=== PATIENT | female | born 1995 | race Caucasian/White ===

== ENCOUNTER 2017-02-25 20:59 | Emergency (ER) | payer SELFPAY ==
--- NOTE | 2017-02-25 22:17 | RADIOLOGY REPORT (SQ) ---
EXAM DESCRIPTION: MANDIBLE 4 VIEWS OR MORE COMPLETED DATE/TIME: 02/25/2017 10:07 pm REASON FOR STUDY: possible dislocation COMPARISON: None. NUMBER OF VIEWS: Four view. TECHNIQUE: Images of the mandible acquired. AP, Froylan's, angled right, angled left mandible images. LIMITATIONS: None. FINDINGS: MANDIBLE: No acute fracture. No disruption of the right or left temporomandibular joints. ORBITS: No fracture. No foreign body. SINUSES: No mucosal thickening. No air fluid levels. FACIAL BONES: No fracture. OTHER: No other significant finding. IMPRESSION: NO ACUTE FRACTURE OR MALALIGNMENT. TECHNICAL DOCUMENTATION: JOB ID: [id number] All Rights Reserved
[2017-02-26] MEDS ORDERED: PROPOFOL INJ 200 MG/20 ML VIAL IV ONE (00:10)
[2017-02-26] MEDS ORDERED: NORMAL SALINE 1000 ML 1,000 ML IV ONE (00:11)
--- NOTE | 2017-02-26 00:16 | ER Document Report ---
ED General - General Chief Complaint: Jaw Pain Stated Complaint: JAW PAIN Time Seen by Provider: 02/26/17 00:02 Notes: Patient is a 19-year-old female presents with complaint of a jaw dislocation. She on and her daughter remained open. She says he said this happened a few times before but has eventually always been able to get her jaw to go back close. She denies any other complaints at this time. No recent trauma. Jaw has now been dislocated for approximately 4 hours. TRAVEL OUTSIDE OF THE [place] IN LAST 30 DAYS: No - Related Data Allergies/Adverse Reactions: Penicillins Allergy (Verified 02/25/17 21:00) Past Medical History - Social History Smoking Status: Never Smoker Frequency of alcohol use: None Drug Abuse: None Family History: Reviewed & Not Pertinent Review of Systems - Review of Systems Notes: My Normal Review Basic REVIEW OF SYSTEMS: CONSTITUTIONAL : Denies fever, chills, or sweats. Denies recent illness. EENT: Jaw dislocation RESPIRATORY: Denies cough, cold, or chest congestion. Denies shortness of breath, difficulty breathing, or wheezing. GASTROINTESTINAL: Denies abdominal pain. Denies nausea, vomiting, or diarrhea. Denies constipation. Last BM: MUSCULOSKELETAL: Denies neck or back pain or joint pain or swelling. SKIN: Denies rash or skin lesions. ALL OTHER SYSTEMS REVIEWED AND NEGATIVE. Physical Exam - Vital signs Vitals: Pulse Resp BP Pulse Ox 81 16 129/81 H 99 02/25/17 21:54 02/25/17 21:54 02/25/17 21:54 02/25/17 21:54 - Notes Notes: General Appearance: Well nourished, alert, cooperative, no acute distress, mild obvious discomfort. Vitals: reviewed, See vital signs table. Head: no swelling or tenderness to the head Eyes: PERRL, EOMI, Conjuctiva clear Mouth: Patient's jaw was stuck in open position. When I go to attempt to reduce the bedside this because patient a lot of pain and therefore I do stop attempt at reduction. Clinically patient has obvious jaw dislocation. Throat: No tonsillar inflammation, No airway obstruction, No lymphadenopathy Neck: Supple, no neck tenderness, Lungs: No wheezing, No rales, No rhonci, No accessory muscle use, good air exchange bilaterally. Heart: Normal rate, Regular rythm, No murmur, no rub Skin: warm, dry, appropriate color, no rash Neuro: speech clear, oriented x 3, normal affect, responds appropriately to questions. Course - Re-evaluation Re-evalutation: 02/26/17 00:12 Patient has obvious jaw dislocation on clinical exam. I did attempt to start to schedule at bedside but this is because patient a lot of pain. She has dislocated her jaw in the past but has always been able to eventually get to go back in. She is having large amount pain with my attempt of reduction I will give her some medication to make her sleepy and then reduce the jaw. 02/26/17 00:53 Patient was given propofol. I initially tried the extra-oral attempt at reduction. Start feel some reduction but she was still having a lot of pain and therefore give a little more propofol. After a little more propofol her jaw reduced. Patient is doing well and has no further concerns. 02/26/17 06:06 Patient is feeling much improved and has recovered fully from sedation. I will refer the patient to oral surgery due to her history of recurrent jaw dislocations. I encourage her to eat a very soft diet and to try not to open her mouth wide when she yawns. Patient encouraged to return to ER if she has recurrent jaw dislocations or has any further concerns. Patient agrees with plan will be discharged home. Dictation of this chart was performed using voice recognition software; therefore, there may be some unintended grammatical errors. - Vital Signs Vital signs: Temp Pulse Resp BP Pulse Ox 81 20 122/78 100 02/25/17 21:54 02/26/17 01:16 02/26/17 01:16 02/26/17 01:16 Procedures - Conscious Sedation Conscious sedation Consent obtained: Yes Normal healthy pt.: P1. - ASA Classification Airway Evaluation: Normal anatomy Mallampati Classification: Class 1 Used during procedure: Suction available, IV access obtained, Pulse ox on pt., gastrointestinal technician on pt. Medications administered: Diprivan I personally performed/intraservice time: Sedation, Procedure, 30 min or less Complications: No Notes: Patient given a total of 80 mg of propofol. She did not have hypotension or hypoxemia. - Joint Reduction/Fracture Care jaw Manipulation comment: extraoral reduction technique Reduction attempts: 2 Complications: No Discharge - Discharge Clinical Impression: Jaw dislocation Qualifiers: Encounter type: initial encounter Qualified Code(s): S03.00XA - Dislocation of jaw, unspecified side, initial encounter Condition: Good Disposition: HOME, SELF-CARE Additional Instructions: Please try to avoid opening your jaw wide and avoid eating chewy foods. Please eat a soft diet for the next 5 days and drink liquids. Please follow up with the oral surgeon, Dr. Ramirez, for further treatment options in regards to your recurrent jaw dislocations. Please return to the ER immediately if you have recurrent dislocation of your jaw, or any further concerns. Referrals: GAUDENCIO RAMIREZ DDS [ACTIVE STAFF] - Follow up in 3-5 days (call in the morning to make a close follow up appointment.)
[2017-02-26 01:17] VITALS: BP 122/78
== END 2017-02-26 01:24 | disposition home or self-care (01) ==
LOC: ER 20:59
PROC: 0RSCXZZ Reposition Right Temporomandibular Joint, External Approach (ICD-10-PCS; principal; 2017-02-25)
DX: S03.00XA Dislocation of jaw, unspecified side, initial encounter (principal); R68.84 Jaw pain; X58.XXXA Exposure to other specified factors, initial encounter
CPT/HCPCS: 99283; 96360; 99152; 70110; 21480; J7030; J2704